=== PATIENT | male | born 1965 | race Caucasian/White ===

== ENCOUNTER 2016-06-29 10:05 | Emergency (ER) | payer OTHER ==
[~2016-06-29] VITALS: Ht 172.7 cm; Wt 82.0 kg
[~2016-06-29 10:05] MED LIST: IBUP800T25 PO
[2016-06-29 10:08] VITALS: Ht 172.7 cm; Wt 82.0 kg
[2016-06-29] MEDS ORDERED: KETOROLAC 30 MG INJ IV STA (10:27)
--- NOTE | 2016-06-29 10:52 | RADRPT ---
PROCEDURE: XR Chest. CLINICAL INDICATION: Chest pain TECHNIQUE: Chest AP portable. COMPARISON: No comparison available. FINDINGS: The mediastinal structures are unremarkable. The heart is normal in size and configuration. The pu lmonary vascularity is normal. The lung jaramillo are unremarkable. No consolidation is identified. The pleural spaces are unremarkable. The axial skeleton is unremarkable. IMPRESSION: No active intrathoracic disease. RPTAT: HGDB .Dwaine Luong MD, MD Date Time Electronically viewed and signed by .Dwaine Luong MD, on 06/29/2016 10:52 .B/
[2016-06-29 10:57] LABS: CHLORIDE 102 mmol/L (97-110); POTASSIUM 3.8 mmol/L (3.5-5.1); SODIUM 143 mmol/L (135-144)
[2016-06-29 11:00] LABS: ANION GAP 20 (8-16); BLOOD UREA NITROGEN 10 mg/dl (7-20); CARBON DIOXIDE 25 mmol/L (21-31)
[2016-06-29 11:01] LABS: CALCIUM 9.7 mg/dl (8.4-10.2); GLUCOSE 109 mg/dl (70-220)
--- NOTE | 2016-06-29 11:03 | ERD ---
ER Documentation Chief Complaint Date/Time DATE: 06/29/16 TIME: 11:00 Chief Complaint left sided chest pain since yesterday HPI 50-year-old male who presents with left-sided chest and shoulder pain since yesterday evening. The patient states that he has pain in the left chest, left back and left arm that is worse with rotational movement worse with elevation of the left upper extremity. He denies any falls or trauma, no injury, no pleuritic pain, no exertional symptoms. He does have some family history of cardiac disease which prompted his visit to the emergency room. He denies any diaphoresis, numbness or tingling or exertional symptoms. No pleuritic pain, calf swelling or travel. The patient does report recent URI illness over the past week with cough. ROS All systems reviewed and are negative except as per history of present illness. Medications Home Meds Active Scripts Ibuprofen* (Motrin*) 800 Mg Tab, 800 MG PO Q6H Y for PAIN AND OR ELEVATED TEMP, #30 TAB Prov:MALACHI MCCORD MD 06/29/16 Discontinued Scripts Ibuprofen* (Motrin*) 800 Mg Tab, 800 MG PO Q8 Y for PAIN, #30 TAB Prov:LOREN NOGUEIRA NP 08/19/14 Allergies Allergies: Coded Allergies: No Known Allergy (Unverified , 06/29/16) FmHx Family History: No diabetes Physical Exam Vitals Vital Signs Date Time Temp Pulse Resp B/P Pulse Ox O2 Delivery O2 Flow Rate FiO2 06/29/16 10:08 97.8 99 18 152/95 96 Physical Exam General: Well developed, well nourished, no acute distress, however uncomfortable when moving around the room Head: Normocephalic, atraumatic. Eyes: Pupils equally reactive, EOM intact ENT: Moist mucous membranes Neck: Supple, no lymphadenopathy Respiratory: Lungs clear bilaterally, no distress Cardiovascular: RRR, no murmurs, rubs, or gallops Abdominal: Soft, non-tender, non-distended, no peritoneal signs : Deferred MSK: No edema, no unilateral swelling, 5/5 strength, no focal tenderness of the shoulder, full active and passive range of motion only slightly limited secondary to pain., No pulse deficits Neurologic: Alert and oriented, moving all extremities, normal speech, no focal weakness, no cerebellar signs Skin: No rash Psych: Normal mood Result Diagram: 06/29/16 1030 06/29/16 1030 Results 24 hrs Laboratory Tests Test 06/29/16 10:30 White Blood Count 12.610^3/ul Red Blood Count 5.1910^6/ul Hemoglobin 15.7g/dl Hematocrit 46.3% Mean Corpuscular Volume 89.2fl Mean Corpuscular Hemoglobin 30.3pg Mean Corpuscular Hemoglobin Concent 33.9g/dl Red Cell Distribution Width 12.1% Platelet Count 78149^3/UL Mean Platelet Volume 9.2fl Neutrophils % 75.5% Lymphocytes % 15.7% Monocytes % 6.4% Eosinophils % 1.5% Basophils % 0.5% Nucleated Red Blood Cells % 0.0/100WBC Neutrophils # 9.510^3/ul Lymphocytes # 2.010^3/ul Monocytes # 0.810^3/ul Eosinophils # 0.210^3/ul Basophils # 0.110^3/ul Nucleated Red Blood Cells # 0.010^3/ul Sodium Level 143mmol/L Potassium Level 3.8mmol/L Chloride Level 102mmol/L Carbon Dioxide Level 25mmol/L Anion Gap 20 Blood Urea Nitrogen 10mg/dl Creatinine 0.90mg/dl Glucose Level 109mg/dl Calcium Level 9.7mg/dl Troponin I < 0.012ng/ml Current Medications Medications (Trade) Dose Ordered Sig/Nicole Route PRN Reason Start Time Stop Time Status Last Admin Dose Admin Ketorolac Tromethamine (Toradol) 30 mg ONCE STAT IV 06/29/16 10:27 06/29/16 10:29 DC 06/29/16 10:38 Procedures/MDM EKG, MONITORS, & DIAGNOSTIC IMAGING: EKG: I reviewed and interpreted a 12-lead EKG. Rhythm: Normal sinus rhythm Ectopy: None Intervals: No abnormalities ST segments: No elevations or depressions T waves: No contiguous inversions Chest x-ray: I reviewed and interpreted a 1 view of the chest Mediastinum: No enlargement Cardiac silhouette: No cardiomegaly Airspace: Clear lung jaramillo bilaterally without evidence of pneumothorax Bones: No evidence of fracture LAB INTERPRETATION: Negative troponin MEDICAL DECISION MAKING: The patient's history, physical exam and clinical presentation is most consistent with likely musculoskeletal etiology given reproducible symptoms, rotational movements, worse pain with ranging of the left upper extremity. I have a very low clinical concern for cardiac etiology given atypical symptoms, no exertional symptoms and limited risk factor profile. Additionally, the patient has recent URI and cough, consider pleurisy. Low concern for pneumothorax. Based on the patient's clinical exam and history and risk factors, I have a much lower clinical concern for pulmonary embolism, acute aortic dissection, pneumothorax, pneumonia, cardiac tamponade HEART Score: 2 MACE Rate: Less than 1.7% Shared Decision Making: We had a conversation regarding risk stratification, MACE rate, and the risks, benefits, alternatives of disposition planning options. Disposition planning: I would anticipate discharge home given very low clinical concern for cardiac etiology, better alternative diagnosis. ER COURSE: Patient given Toradol with improved symptoms. I kept the patient and/or family informed of laboratory and diagnostic imaging results throughout the emergency room course. DISPOSITION PLAN: We discussed follow up with the patient's primary care doctor within 24 to 48 hours as needed. We also discussed return to the emergency room for worsening symptoms or worsening condition. Outpatient referral: [None required] Discharge Medications: Motrin Departure Diagnosis: Primary Impression: Chest wall pain Condition: Stable MALACHI MCCORD MD Jun 29, 2016 11:02
[2016-06-29 11:13] LABS: TROPONIN-I < 0.012 ng/ml (0.00-0.12)
[2016-06-29] MEDS ORDERED: IBUP800T25 PO (11:24)
[2016-06-29 11:45] LABS: ADD SCAN DIFF NO
[2016-06-29 12:08] LABS: BASOPHIL # 0.1 10^3/ul (0.0-0.1); BASOPHILS % 0.5 % (0.0-2.0); EOSINOPHILS # 0.2 10^3/ul (0.0-0.5); EOSINOPHILS % 1.5 % (0.0-7.0); HEMATOCRIT 46.3 % (42.0-52.0); HEMOGLOBIN 15.7 g/dl (14.0-18.0); LYMPHOCYTES % 15.7 % (15.0-51.0); MEAN CORPUSCULAR HEMOGLOBIN 30.3 pg (29.0-33.0); MEAN CORPUSCULAR HGB CONC 33.9 g/dl (32.0-37.0); MEAN CORPUSCULAR VOLUME 89.2 fl (82.0-101.0); MEAN PLATELET VOLUME 9.2 fl (7.4-10.4); MONOCYTE # 0.8 10^3/ul (0.3-0.9); MONOCYTES % 6.4 % (0.0-11.0); NEUTROPHIL # 9.5 10^3/ul (1.6-7.5); NEUTROPHILS % 75.5 % (39.0-77.0); PLATELET COUNT 321 10^3/UL (140-415); RED BLOOD COUNT 5.19 10^6/ul (4.70-6.10); RED CELL DISTRIBUTION WIDTH 12.1 % (11.5-14.5); WHITE BLOOD COUNT 12.6 10^3/ul (4.8-10.8)
[2016-06-29 12:25] VITALS: BP 131/87; PULSE 83; RESP 20; TEMP 98.3
== END 2016-06-29 12:37 | disposition home or self-care (01) ==
LOC: E/R 10:05
DX: R07.89 Other chest pain (principal)
CPT/HCPCS: 36415; 71010; 80048; 84484; 85025; 93005; 96374; J1885; Z7502